=== PATIENT | male | born 1985 | race Hispanic/Latino ===

== ENCOUNTER 2017-11-25 18:16 | Emergency (ER) | payer MEDICAID ==
[2017-11-25] MEDS ORDERED: DIATR MEGLU/DIATRIZOATE SODIUM 30 ML BOTTLE ONE (18:31)
== END 2017-11-25 19:43 | disposition home or self-care (01) ==
LOC: EDH 18:16
DX: Z46.59 Encounter for fitting and adjustment of other gastrointestinal appliance and device (principal); Z88.1 Allergy status to other antibiotic agents
CPT/HCPCS: 74018; 99283; Q9963